=== PATIENT | female | born 1955 ===

== ENCOUNTER 2017-12-27 14:29 | Outpatient (CLI) | payer OTHER ==
[~2017-12-27] VITALS: Ht 152.4 cm; Wt 77.1 kg
[~2017-12-27 14:29] MED LIST: AVAPRO75 MG PO; FLONASE16 GM NS; NORVASC5 MG PO; ZYRTEC10 MG PO; [UNRECOGNIZED DRUG - OTHER]
== END 2017-12-27 17:00 | disposition home or self-care (01) ==
LOC: OFIC 805 14:29
DX: R42 Dizziness and giddiness (principal); G50.1 Atypical facial pain